=== PATIENT | male | born 1975 | race Two or more races ===

== ENCOUNTER 2020-02-20 15:01 | Inpatient (IN) | payer BC ==
[~2020-02-20] VITALS: Ht 165.1 cm; Wt 129.3 kg
--- NOTE | 2020-02-20 18:00 | NUR ---
Patient arrived in [facility] via gurney, AOx4, on RA with SOB on exertion. Denied chest pain. IV on left hand 20g flushed and patent. Informed Dr. Pratt for admission orders. Oriented to room and unit. Safety precaution in place. Endorsed to PM shift nurse regarding admitting papers for patient, still with grocery clerk selling. No other complaints at this time
[2020-02-20 18:20] VITALS: BP 117/66
[2020-02-20] MEDS ORDERED: CODE473L6 PO (18:39)
[2020-02-20] MEDS ORDERED: ALBU18HF2 INH (18:39)
[2020-02-20] MEDS ORDERED: AZIT250T PO (18:39)
[2020-02-20] MEDS ORDERED: PRAV40TA3 PO (18:39)
[2020-02-20] MEDS ORDERED: BISM525O14 PO (18:39)
[2020-02-20] MEDS ORDERED: PRED50TA PO (18:39)
[2020-02-20] MEDS ORDERED: METF-442 PO (18:39)
[2020-02-20] MEDS ORDERED: EMPA10TA PO (19:12)
--- NOTE | 2020-02-20 19:40 | NUR ---
Received pt in bed. Awake. Denies any acute distress or CP but complains of dry cough. Will assess and check if PRN cough medication is available. V/S stable on 2L NC, tolerating well. NSR on tele monitor. PIV on LH20G is intact. Pt is on isolation precaution, COVID+. Safety measures in place. Call light within reach. Will continue with the plan of care.
[2020-02-20 20:12] VITALS: BP 107/57
[2020-02-20] MEDS ORDERED: ONDANSETRON 4 MG/2 ML VIAL IV PRN (22:15)
[2020-02-20] MEDS ORDERED: MAGNESIUM HYDROXIDE 30 ML LIQUID UDC PO PRN (22:15)
[2020-02-20] MEDS ORDERED: Z GUARD REMEDY PASTE 57 GM TUBE TOP PRN (22:15)
[2020-02-20] MEDS ORDERED: HYDROCODONE/APAP 5-325MG TABLET PO PRN (22:15)
[2020-02-20] MEDS: ACETAMINOPHEN 325 MG TABLET PO PRN (22:58)
[2020-02-20] MEDS: ZOLPIDEM 5 MG TABLET PO PRN (22:58)
[2020-02-21 00:12] VITALS: BP 133/83
[2020-02-21] MEDS: GUAIFENESIN/DEXTROMETHORPHAN 5 ML UDC PO PRN ×2 (01:10→20:29)
[2020-02-21 04:19] VITALS: BP 123/73
[2020-02-21] MEDS: PANTOPRAZOLE SODIUM 40 MG TABLET.DR PO SCH (06:52)
[2020-02-21 10:28] LABS: BASOPHILS % (AUTO) 0.2 % (0.0-2.0); EOSINOPHILS % (AUTO) 0.1 % (0.0-7.0); HEMATOCRIT 46.6 % (36.7-47.1); HEMOGLOBIN 15.5 g/dL (12.5-16.3); LYMPHOCYTES # (AUTO) 0.9 K/uL (20.0-40.0); LYMPHOCYTES % (AUTO) 10.8 % (20.5-51.5); MEAN CORPUSCULAR HEMOGLOBIN 27.9 uug (23.8-33.4); MEAN CORPUSCULAR HGB CONC 33 g/dL (32.5-36.3); MEAN CORPUSCULAR VOLUME 83.8 fL (73.0-96.2); MONOCYTES # (AUTO) 0.4 K/uL (2.0-10.0); MONOCYTES % (AUTO) 4.7 % (0.0-11.0); NEUTROPHILS # (AUTO) 7.1 K/uL (1.8-8.9); NEUTROPHILS % (AUTO) 84.2 % (38.5-71.5); PLATELET COUNT (AUTO) 196 K/uL (152-348); RED BLOOD CELL COUNT(AUTO) 5.56 MIL/uL (4.06-5.63); WHITE BLOOD COUNT (AUTO) 8.4 K/uL (3.6-10.2)
[2020-02-21 10:30] LABS: CREATININE 1.1 mg/dL (0.6-1.3); PHOSPHOROUS 2.1 mg/dL (2.5-4.9); POTASSIUM 3.2 mmol/L (3.5-5.1)
[2020-02-21 11:19] LABS: THYROID STIMULATING HORMONE 0.583 mIU/mL (0.358-3.740)
[2020-02-21 12:07] VITALS: BP 113/63
--- NOTE | 2020-02-21 12:13 | NUR ---
Pt stable throughout the shift. Denies any CP or SOB. On 2L NC,tolerating well. Comfort care and needs attended. Isolation precaution maintained. Safety measures in place. Will endorse to oncoming nurse accordingly.
[2020-02-21] MEDS ORDERED: POTASSIUM PHOSPHATE MM 15 MMOL in IV NORMAL SALINE 250 ML IV ONE (12:15)
[2020-02-21] MEDS ORDERED: DEXTROSE 50% 50 ML DISP.SYRIN IV PRN (13:15)
[2020-02-21 14:37] LABS: FERRITIN 280 ng/mL (26-388); LACTATE DEHYDROGENASE 337 U/L (85-227)
[2020-02-21 16:00] VITALS: BP 132/86
--- NOTE | 2020-02-21 17:00 | NUR ---
SOB WITH MINIMAL EXERTION. MED PO WITH TYLENOL FOR C/O H/A AND FEVER. ANXIOUS AND PACING IN ROOM.
[2020-02-21] MEDS: BLOOD SUGAR DIAGNOSTIC 1 EACH STRIP VI SCH ×2 (18:11→20:30)
[2020-02-21] MEDS: ENOXAPARIN SODIUM 40 MG/0.4 ML DISP.SYRIN SQ SCH (18:22)
[2020-02-21] MEDS: METFORMIN HCL 500 MG TABLET PO SCH (18:22)
[2020-02-21] MEDS: ACETAMINOPHEN 325 MG TABLET PO PRN (18:22)
[2020-02-21] MEDS: DEXAMETHASONE 4 MG TABLET PO SCH (18:23)
[2020-02-21] MEDS ORDERED: REMDESIVIR (CHARGED) 200 MG in IV NORMAL SALINE 210 ML IV ONE (18:30)
--- NOTE | 2020-02-21 19:38 | NUR ---
Patient lives locally with family. 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 Has good family support. Plan to dc home when stable. Addendum: 02/21/20 at 1938 by KRISTY VALLECILLO CMG Amended: Links added.
--- NOTE | 2020-02-21 20:13 | NUR ---
Began remdesivir in left hand IV. VS prior to start BP 115/79 HR 106 Temp 99.1 96% 2L NC. Will continue to monitor.
--- NOTE | 2020-02-21 20:18 | NUR ---
Pt denies SOB, N/V, diaphoresis, and shivering. BP 125/84 HR 84. Will continue to monitor
[2020-02-21] MEDS: ATORVASTATIN 40 MG TABLET PO SCH (20:29)
[2020-02-21 20:49] VITALS: BP 115/79
--- NOTE | 2020-02-21 21:15 | NUR ---
Pt tolerated remedsivir well. Pt denies SOB, N/V, diaphoresis, and shivering. BP 135/86 HR 94. Will continue to monitor.
[2020-02-21] MEDS: POTASSIUM PHOSPHATE MM 7.5 MMOL in IV NORMAL SALINE 97.5 ML IV SCH (22:19)
[2020-02-21] MEDS: ZOLPIDEM 5 MG TABLET PO PRN (22:21)
[2020-02-22 01:00] VITALS: BP 118/83
[2020-02-22] MEDS: POTASSIUM PHOSPHATE MM 7.5 MMOL in IV NORMAL SALINE 97.5 ML IV SCH (01:44)
[2020-02-22] MEDS: GUAIFENESIN/DEXTROMETHORPHAN 5 ML UDC PO PRN ×4 (01:48→21:36)
[2020-02-22 05:25] VITALS: BP 132/73
[2020-02-22] MEDS: PANTOPRAZOLE SODIUM 40 MG TABLET.DR PO SCH (06:00)
[2020-02-22] MEDS: BLOOD SUGAR DIAGNOSTIC 1 EACH STRIP VI SCH ×4 (06:38→21:22)
[2020-02-22 08:05] LABS: BASOPHILS % (AUTO) 0.1 % (0.0-2.0); HEMATOCRIT 44.5 % (36.7-47.1); HEMOGLOBIN 15.1 g/dL (12.5-16.3); LYMPHOCYTES # (AUTO) 0.5 K/uL (20.0-40.0); LYMPHOCYTES % (AUTO) 5.6 % (20.5-51.5); MEAN CORPUSCULAR HEMOGLOBIN 28.6 uug (23.8-33.4); MEAN CORPUSCULAR HGB CONC 34 g/dL (32.5-36.3); MEAN CORPUSCULAR VOLUME 84.3 fL (73.0-96.2); MONOCYTES # (AUTO) 0.4 K/uL (2.0-10.0); MONOCYTES % (AUTO) 4.5 % (0.0-11.0); NEUTROPHILS # (AUTO) 8.3 K/uL (1.8-8.9); NEUTROPHILS % (AUTO) 89.8 % (38.5-71.5); PLATELET COUNT (AUTO) 189 K/uL (152-348); RED BLOOD CELL COUNT(AUTO) 5.28 MIL/uL (4.06-5.63); WHITE BLOOD COUNT (AUTO) 9.2 K/uL (3.6-10.2)
[2020-02-22 08:10] LABS: MAGNESIUM 2.3 mg/dL (1.8-2.4); PHOSPHOROUS 2.6 mg/dL (2.5-4.9); POTASSIUM 3.9 mmol/L (3.5-5.1)
[2020-02-22 08:16] LABS: BILIRUBIN,DIRECT 0.2 mg/dL (0.0-0.2); BILIRUBIN,TOTAL 0.6 mg/dL (0.2-1.0); TOTAL PROTEIN, SERUM 7.7 g/dL (6.4-8.2)
[2020-02-22] MEDS: METFORMIN HCL 500 MG TABLET PO SCH ×2 (08:44→17:14)
[2020-02-22] MEDS: DEXAMETHASONE 4 MG TABLET PO SCH (08:44)
[2020-02-22] MEDS: ENOXAPARIN SODIUM 40 MG/0.4 ML DISP.SYRIN SQ SCH (08:46)
[2020-02-22 11:34] VITALS: BP 125/81
[2020-02-22 16:14] VITALS: BP 133/72
[2020-02-22] MEDS: REMDESIVIR (CHARGED) 100 MG in IV NORMAL SALINE 230 ML IV SCH (17:23)
--- NOTE | 2020-02-22 18:03 | NUR ---
BLOOD SUGAR 174 REFUSED INSULIN COVERAGE. METFORMIN GIVEN ORDERED.
--- NOTE | 2020-02-22 19:20 | NUR ---
Pt in bed, awake. Denies any acute distress or pain at this time. V/S stable on 2L NC, tolerating well. NSR, 81 on tele monitor. Safety measures in place. Call light within reach. Will continue with the plan of care.
[2020-02-22 20:16] VITALS: BP 136/85
[2020-02-22] MEDS: ATORVASTATIN 40 MG TABLET PO SCH (20:55)
[2020-02-22] MEDS: ZOLPIDEM 5 MG TABLET PO PRN (21:36)
[2020-02-22] MEDS: INSULIN REGULAR, HUMAN 300 UNIT/3 ML VIAL SQ PRN (21:36)
[2020-02-23 00:28] VITALS: BP 124/82
[2020-02-23] MEDS: GUAIFENESIN/DEXTROMETHORPHAN 5 ML UDC PO PRN ×2 (02:11→09:56)
[2020-02-23 04:31] VITALS: BP 132/82
--- NOTE | 2020-02-23 06:05 | NUR ---
PT SLEPT THROUGH THE NIGHT. V/S STABLE THROUGHOUT THE SHIFT. DENIES ANY ACUTE DISTRESS/SOB/CP. ON 2L NC. NSR ON TELE MONITOR. COMFORT CARE AND NEEDS ATTENDED.SAFETY MEASURES IN PLACE. ISOLATION PRECAUTION MAINTAINED. WILL ENDORSE TO ONCOMING NURSE ACCORDINGLY.
[2020-02-23] MEDS: PANTOPRAZOLE SODIUM 40 MG TABLET.DR PO SCH (06:26)
[2020-02-23] MEDS: BLOOD SUGAR DIAGNOSTIC 1 EACH STRIP VI SCH ×4 (06:42→21:21)
[2020-02-23 07:49] LABS: BILIRUBIN,DIRECT 0.2 mg/dL (0.0-0.2); BILIRUBIN,TOTAL 0.6 mg/dL (0.2-1.0); MAGNESIUM 2.4 mg/dL (1.8-2.4); PHOSPHOROUS 2.8 mg/dL (2.5-4.9); POTASSIUM 3.6 mmol/L (3.5-5.1); TOTAL PROTEIN, SERUM 7.5 g/dL (6.4-8.2)
[2020-02-23 07:56] LABS: BASOPHILS % (AUTO) 0.1 % (0.0-2.0); HEMATOCRIT 45.2 % (36.7-47.1); HEMOGLOBIN 14.9 g/dL (12.5-16.3); LYMPHOCYTES # (AUTO) 0.9 K/uL (20.0-40.0); LYMPHOCYTES % (AUTO) 8.5 % (20.5-51.5); MEAN CORPUSCULAR HEMOGLOBIN 28.3 uug (23.8-33.4); MEAN CORPUSCULAR HGB CONC 33 g/dL (32.5-36.3); MEAN CORPUSCULAR VOLUME 85.4 fL (73.0-96.2); MONOCYTES # (AUTO) 0.7 K/uL (2.0-10.0); MONOCYTES % (AUTO) 6.3 % (0.0-11.0); NEUTROPHILS # (AUTO) 9.1 K/uL (1.8-8.9); NEUTROPHILS % (AUTO) 85.1 % (38.5-71.5); PLATELET COUNT (AUTO) 226 K/uL (152-348); RED BLOOD CELL COUNT(AUTO) 5.29 MIL/uL (4.06-5.63); WHITE BLOOD COUNT (AUTO) 10.7 K/uL (3.6-10.2)
--- NOTE | 2020-02-23 08:00 | NUR ---
Discussed plan of care with patient re: taking robitussin for coughing and inhaler for his sob. Pt agreeable with plan of care. Pt on o2 at 2 lit with 94%. Call light is within reach.
[2020-02-23 08:12] VITALS: BP 107/66
[2020-02-23] MEDS: METFORMIN HCL 500 MG TABLET PO SCH ×2 (09:08→18:30)
[2020-02-23] MEDS: INSULIN REGULAR, HUMAN 300 UNIT/3 ML VIAL SQ PRN ×3 (09:09→21:25)
[2020-02-23] MEDS: ENOXAPARIN SODIUM 40 MG/0.4 ML DISP.SYRIN SQ SCH (09:10)
[2020-02-23] MEDS: DEXAMETHASONE 4 MG TABLET PO SCH (09:10)
[2020-02-23] MEDS: ALBUTEROL SULFATE 8 GM HFA.AER.AD INH PRN ×2 (09:57→22:00)
[2020-02-23 12:27] VITALS: BP 117/69
[2020-02-23] MEDS ORDERED: FUROSEMIDE 20 MG/2 ML VIAL IV ONE (14:15)
[2020-02-23] MEDS: GUAIFENESIN/CODEINE 5 ML LIQUID UDC PO PRN ×3 (14:18→21:25)
--- NOTE | 2020-02-23 15:19 | NUR ---
PT states that the inhaler given earlier helped and that he is breathing easier than this am. Inhaler effective.
[2020-02-23 16:26] VITALS: BP 139/85
[2020-02-23] MEDS: REMDESIVIR (CHARGED) 100 MG in IV NORMAL SALINE 230 ML IV SCH (18:30)
--- NOTE | 2020-02-23 18:45 | NUR ---
Pt is in no acute distress. Pt using less of his respiratory accessory muscles during breathing. Pt more comfortable. Pt cough managed with Robitussin with codeine. Call light is within reach.
--- NOTE | 2020-02-23 19:00 | NUR ---
Patient received from AM nurse. VSS. Stable condition. Safety measures in place. Patient is a very pleasant man. Will monitor and assess.
[2020-02-23] MEDS: ATORVASTATIN 40 MG TABLET PO SCH (21:14)
[2020-02-23 21:20] VITALS: BP 103/61
[2020-02-23] MEDS: ZOLPIDEM 5 MG TABLET PO PRN (21:25)
[2020-02-24 01:05] VITALS: BP 116/66
[2020-02-24 06:01] VITALS: BP 120/71
[2020-02-24] MEDS: PANTOPRAZOLE SODIUM 40 MG TABLET.DR PO SCH (06:29)
[2020-02-24] MEDS: BLOOD SUGAR DIAGNOSTIC 1 EACH STRIP VI SCH ×4 (06:37→20:50)
--- NOTE | 2020-02-24 06:42 | NUR ---
Patient handed off to AM nurse. VSS. Stable condition. No pain. Safety measures in place. Non-remarkable findings throughout the night. O2 running at 4L via NC. Will endorse all pertinent information to AM nurse.
--- NOTE | 2020-02-24 08:00 | NUR ---
PT alert and oriented x 3. Pt is in no acute distress. Call light is within reach.
[2020-02-24] MEDS: DEXAMETHASONE 4 MG TABLET PO SCH (08:50)
[2020-02-24] MEDS: METFORMIN HCL 500 MG TABLET PO SCH ×2 (08:50→17:04)
[2020-02-24] MEDS: ENOXAPARIN SODIUM 40 MG/0.4 ML DISP.SYRIN SQ SCH (08:50)
[2020-02-24] MEDS: GUAIFENESIN/CODEINE 5 ML LIQUID UDC PO PRN ×4 (09:00→22:07)
[2020-02-24 11:59] VITALS: BP 115/75
[2020-02-24] MEDS: INSULIN REGULAR, HUMAN 300 UNIT/3 ML VIAL SQ PRN ×2 (12:25→20:56)
[2020-02-24 14:49] LABS: BASOPHILS % (AUTO) 0.2 % (0.0-2.0); EOSINOPHILS % (AUTO) 0.1 % (0.0-7.0); HEMATOCRIT 48.6 % (36.7-47.1); HEMOGLOBIN 15.8 g/dL (12.5-16.3); LYMPHOCYTES # (AUTO) 0.6 K/uL (20.0-40.0); LYMPHOCYTES % (AUTO) 7.2 % (20.5-51.5); MEAN CORPUSCULAR HEMOGLOBIN 27.6 uug (23.8-33.4); MEAN CORPUSCULAR HGB CONC 33 g/dL (32.5-36.3); MEAN CORPUSCULAR VOLUME 84.9 fL (73.0-96.2); MONOCYTES # (AUTO) 0.6 K/uL (2.0-10.0); MONOCYTES % (AUTO) 6.7 % (0.0-11.0); NEUTROPHILS # (AUTO) 7.8 K/uL (1.8-8.9); NEUTROPHILS % (AUTO) 85.8 % (38.5-71.5); PLATELET COUNT (AUTO) 244 K/uL (152-348); RED BLOOD CELL COUNT(AUTO) 5.72 MIL/uL (4.06-5.63)
[2020-02-24 15:16] LABS: BILIRUBIN,DIRECT 0.2 mg/dL (0.0-0.2); BILIRUBIN,TOTAL 0.6 mg/dL (0.2-1.0); CREATININE 1.1 mg/dL (0.6-1.3); TOTAL PROTEIN, SERUM 7.9 g/dL (6.4-8.2)
[2020-02-24 16:01] VITALS: BP 127/79
[2020-02-24] MEDS: REMDESIVIR (CHARGED) 100 MG in IV NORMAL SALINE 230 ML IV SCH (17:54)
--- NOTE | 2020-02-24 19:05 | NUR ---
Pt is in no acute distress. Pt managed cough with robitussin, sob with inhaler. Pt comfortable. 93% 02 sat on 1 liter tolerated NO SOB.
--- NOTE | 2020-02-24 19:30 | NUR ---
Received pt awake and in bed. Denies any pain or SOB. No other concerns at this time.
[2020-02-24 20:21] VITALS: BP 116/69
[2020-02-24] MEDS: ATORVASTATIN 40 MG TABLET PO SCH (20:40)
[2020-02-24] MEDS: ZOLPIDEM 5 MG TABLET PO PRN (22:07)
[2020-02-25 04:18] VITALS: BP 117/68
[2020-02-25] MEDS: PANTOPRAZOLE SODIUM 40 MG TABLET.DR PO SCH (06:18)
[2020-02-25] MEDS: BLOOD SUGAR DIAGNOSTIC 1 EACH STRIP VI SCH ×4 (06:33→21:12)
--- NOTE | 2020-02-25 06:42 | NUR ---
Pt slept throughout the night with no complaints. Denies chest pain or any discomfort at this time. On 1L NC with no s/s of respiratory distress. Safety and comfort provided. No other issues or concerns at this time. Will endorse to day shift.
--- NOTE | 2020-02-25 08:00 | NUR ---
Put patient on R/A. 815 rechecked o2 sat. Pt was saturating 88% 02sat on r/a while at rest. Put pt back on 1 liter pt saturating 96%. Discussed plan with pt regarding managing his cough and sob with robitussing and his inhaler. Pt agreeable with plan of care. Pt is not sob. Call light is within reach.
[2020-02-25] MEDS: METFORMIN HCL 500 MG TABLET PO SCH ×2 (08:03→16:47)
[2020-02-25] MEDS: ENOXAPARIN SODIUM 40 MG/0.4 ML DISP.SYRIN SQ SCH (08:10)
[2020-02-25] MEDS: DEXAMETHASONE 4 MG TABLET PO SCH (08:22)
[2020-02-25] MEDS: GUAIFENESIN/CODEINE 5 ML LIQUID UDC PO PRN ×3 (08:55→21:13)
[2020-02-25 10:48] LABS: BASOPHILS % (AUTO) 0.3 % (0.0-2.0); EOSINOPHILS % (AUTO) 0.3 % (0.0-7.0); HEMATOCRIT 44.8 % (36.7-47.1); HEMOGLOBIN 14.6 g/dL (12.5-16.3); LYMPHOCYTES # (AUTO) 0.7 K/uL (20.0-40.0); LYMPHOCYTES % (AUTO) 6.1 % (20.5-51.5); MEAN CORPUSCULAR HEMOGLOBIN 27.6 uug (23.8-33.4); MEAN CORPUSCULAR HGB CONC 33 g/dL (32.5-36.3); MEAN CORPUSCULAR VOLUME 84.3 fL (73.0-96.2); MONOCYTES % (AUTO) 8.5 % (0.0-11.0); NEUTROPHILS % (AUTO) 84.8 % (38.5-71.5); PLATELET COUNT (AUTO) 285 K/uL (152-348); RED BLOOD CELL COUNT(AUTO) 5.32 MIL/uL (4.06-5.63); WHITE BLOOD COUNT (AUTO) 11.8 K/uL (3.6-10.2)
[2020-02-25 11:20] LABS: BILIRUBIN,DIRECT 0.3 mg/dL (0.0-0.2); BILIRUBIN,TOTAL 0.6 mg/dL (0.2-1.0); POTASSIUM 3.8 mmol/L (3.5-5.1); TOTAL PROTEIN, SERUM 7.3 g/dL (6.4-8.2)
[2020-02-25 12:00] VITALS: BP 133/71
[2020-02-25] MEDS: INSULIN REGULAR, HUMAN 300 UNIT/3 ML VIAL SQ PRN ×3 (12:24→21:13)
[2020-02-25 16:00] VITALS: BP 128/82
[2020-02-25] MEDS: REMDESIVIR (CHARGED) 100 MG in IV NORMAL SALINE 230 ML IV SCH (17:43)
--- NOTE | 2020-02-25 18:52 | NUR ---
PT able to tolerate 1liter via n/c with sat of 96%. PT is in no acute distress call light is within reach.
--- NOTE | 2020-02-25 19:30 | NUR ---
patient received sitting on chair watching TV. aaox3. no s/s of acute distress noted. v/s stable at this time. safety precautions provided. bed in lowest, side rails upx2, bed alarm on. will continue to monitor and assess throughout the night.
[2020-02-25 20:18] VITALS: BP 119/75
[2020-02-25] MEDS: ATORVASTATIN 40 MG TABLET PO SCH (21:12)
[2020-02-25] MEDS: ZOLPIDEM 5 MG TABLET PO PRN (21:14)
[2020-02-26 04:20] VITALS: BP 126/76
[2020-02-26] MEDS: PANTOPRAZOLE SODIUM 40 MG TABLET.DR PO SCH (06:07)
--- NOTE | 2020-02-26 06:21 | NUR ---
patient resting comfortably. medications administered and all needs attended to. safety precautions provided. v/s stable and no s/s of acute distress.
[2020-02-26] MEDS: BLOOD SUGAR DIAGNOSTIC 1 EACH STRIP VI SCH ×2 (06:31→11:35)
[2020-02-26 07:12] LABS: BILIRUBIN,DIRECT 0.3 mg/dL (0.0-0.2); BILIRUBIN,TOTAL 0.8 mg/dL (0.2-1.0); MAGNESIUM 2.5 mg/dL (1.8-2.4); POTASSIUM 4.1 mmol/L (3.5-5.1)
[2020-02-26] MEDS: METFORMIN HCL 500 MG TABLET PO SCH (08:34)
[2020-02-26] MEDS: DEXAMETHASONE 4 MG TABLET PO SCH (08:34)
[2020-02-26] MEDS: ENOXAPARIN SODIUM 40 MG/0.4 ML DISP.SYRIN SQ SCH (08:40)
[2020-02-26] MEDS: GUAIFENESIN/CODEINE 5 ML LIQUID UDC PO PRN (11:36)
[2020-02-26] MEDS: INSULIN REGULAR, HUMAN 300 UNIT/3 ML VIAL SQ PRN (11:39)
[2020-02-26 12:09] VITALS: BP 113/62
[2020-02-26] MEDS ORDERED: GUAI5SYR4 PO (14:06)
[2020-02-26] MEDS ORDERED: DEXA4TAB2 PO (14:06)
[2020-02-26] MEDS ORDERED: Blood Sugar Diagnostic VI (14:06)
[2020-02-26 16:16] VITALS: BP 119/71
--- NOTE | 2020-02-26 17:20 | NUR ---
PATIENT SCHEDULED TO BE DISCHARGED. VSS. PATIENT GIVEN EDUCATIONAL MATERIAL PERTAINING DIAGNOSIS AND SELF-ISOLATION INSTRUCTION PER MD ORDER. PATIENT VERBALIZED UNDERSTANDING. PRESCRIPTION AND BELONGINGS RETURNED TO PATIENT. NO S/S OF DISTRESS OR SOB NOTED AT THIS TIME. PICKED UP VIA PRIVATE CAR.
== END 2020-02-26 17:25 | disposition home or self-care (01) | DRG 177 ==
LOC: TELE3 18:19 → MEDSURG3 02-24 09:30
PROVIDERS: ADMIT Nurse Practitioner Acute Care; ATTEND Nurse Practitioner Acute Care
PROC: XW033E5 Introduction of Remdesivir Anti-infective into Peripheral Vein, Percutaneous Approach, New Technology Group 5 (ICD-10-PCS; principal; 2020-02-21)
DX: U07.1 COVID-19 (principal); J12.89 Other viral pneumonia; J96.01 Acute respiratory failure with hypoxia; D68.69 Other thrombophilia; Z68.42 Body mass index [BMI] 45.0-49.9, adult; I50.30 Unspecified diastolic (congestive) heart failure; E87.6 Hypokalemia; E11.9 Type 2 diabetes mellitus without complications; E66.9 Obesity, unspecified; E83.39 Other disorders of phosphorus metabolism; E78.5 Hyperlipidemia, unspecified; G47.00 Insomnia, unspecified; I25.2 Old myocardial infarction; Z79.84 Long term (current) use of oral hypoglycemic drugs; Z87.01 Personal history of pneumonia (recurrent); Z83.3 Family history of diabetes mellitus
CPT/HCPCS: 36415; 71045; 83615; 83735; 84100; 84443; 85025; 85610; 85730; 86140; G0378; J1650; J1815; J1940; J3490; J3535; J7030; J7050; J8540